=== PATIENT | female | born 1990 | race Hispanic/Latino ===

== ENCOUNTER 2021-09-01 22:44 | Emergency (ER) | payer SELFPAY | END 2021-09-02 01:04 | disposition home or self-care (01) | LOC: ERS 22:44 | DX: M79.671 Pain in right foot (principal) | CPT/HCPCS: 99281 ==

== ENCOUNTER 2022-01-21 08:49 | Emergency (ER) | payer SELFPAY ==
[2022-01-21] MEDS ORDERED: Ketorolac Tromethamine 30 MG/ML VIAL ONE (09:22)
== END 2022-01-21 10:26 | disposition home or self-care (01) ==
LOC: ERS 08:49
DX: S29.012A Strain of muscle and tendon of back wall of thorax, initial encounter (principal); X58.XXXA Exposure to other specified factors, initial encounter
CPT/HCPCS: 96372; 99283; J1885

== ENCOUNTER 2023-02-01 08:59 | Emergency (ER) | payer SELFPAY | END 2023-02-01 09:50 | disposition home or self-care (01) | LOC: ERS 08:59 | DX: M79.641 Pain in right hand (principal); M79.642 Pain in left hand | CPT/HCPCS: 99283 ==

== ENCOUNTER 2024-10-04 10:52 | Emergency (ER) | payer SELFPAY ==
[2024-10-04] MEDS ORDERED: Ketorolac Tromethamine 30 MG (1 mL) VIAL ONE (12:17)
[2024-10-04] MEDS ORDERED: Dexamethasone 10 MG/ML VIAL ONE (12:20)
== END 2024-10-04 12:40 | disposition home or self-care (01) ==
LOC: ERS 10:52
DX: M54.50 Low back pain, unspecified (principal)
CPT/HCPCS: 96372; J1100; J1885